=== PATIENT | male | born 1980 | race Caucasian/White ===

== ENCOUNTER → 2020-08-18 | Outpatient (CLI) | payer OTHER ==
[~2020-08-18] MED LIST: COLACE100 MG PO; NORCO 7.5-3251 EACH PO
== END ==
LOC: KOH-I 08:21
DX: M54.16 Radiculopathy, lumbar region (principal); R20.2 Paresthesia of skin; R53.1 Weakness; M51.26 Other intervertebral disc displacement, lumbar region
CPT/HCPCS: 72148

== ENCOUNTER → 2021-05-04 | Outpatient (CLI) | payer BC ==
[2021-05-04 11:33] LABS: HEMOGLOBIN 15.9 gm/dl (14.0-17.5); RED BLOOD COUNT 4.85 M/UL (4.20-5.50); WHITE BLOOD COUNT 12.4 K/UL (4.5-11.0)
[2021-05-04 11:54] LABS: BUN/CREATININE RATIO 14 (0-10)
== END ==
LOC: LAB 11:07
PROVIDERS: Nurse Practitioner Family
DX: R10.31 Right lower quadrant pain (principal); R10.32 Left lower quadrant pain
CPT/HCPCS: 36415; 80053; 85027